=== PATIENT | male | born 1960 | race Caucasian/White ===

== ENCOUNTER → 2018-04-17 | Outpatient (CLI) | payer MEDICARE ==
--- NOTE | 2018-04-17 10:56 | Diagnostic Imaging Report ---
INDICATION: Chronic hepatitis C TECHNIQUE: Multiple grayscale sonographic images were obtained of the right upper quadrant of the abdomen. CORRELATION STUDY: None FINDINGS: LIVER: There is slight heterogeneous increased echotexture within the visualized portions of the liver. This does limited echo penetration of the liver. Liver is mildly enlarged at 20 cm. GALLBLADDER: Cholecystectomy. COMMON BILE DUCT: Not able to be visualized. No suggestion for significant bile duct dilatation.. PANCREAS: Obscured by overlying bowel gas. RIGHT KIDNEY: Measures 10.9 cm. No hydronephrosis. AORTA/IVC: Not well visualized. OTHER: None. IMPRESSION: 1. Slight heterogeneous echotexture liver parenchyma reflect some degree of infiltration. Liver is mildly enlarged. 2. Postcholecystectomy changes. Dictated by: Dictated on workstation # [id number]
== END ==
LOC: RAD 09:48
PROVIDERS: ATTEND Pediatrics
DX: B18.2 Chronic viral hepatitis C (principal); Z90.49 Acquired absence of other specified parts of digestive tract
CPT/HCPCS: 76705

== ENCOUNTER → 2019-04-15 | Outpatient (CLI) | payer MEDICARE, OTHER ==
--- NOTE | 2019-04-15 17:02 | Diagnostic Imaging Report ---
INDICATION: [id number] history of smoking. COMPARISON: None. TECHNIQUE: Routine low-dose noncontrast CT of the chest was performed per screening protocol. Auto Exposure Controls were utilized during the CT exam to meet ALARA standards for radiation dose reduction. FINDINGS: Evaluation of the lung jeffers demonstrates 6 mm juxtapleural micronodule within the inferolateral margins of the right upper lobe (image 96, series 2). No other suspicious pulmonary nodules or masses are identified. There is no focal consolidation, large effusion, nor pneumothorax. Cardiomediastinal structures show normal heart size. There is aneurysmal dilatation of the ascending thoracic aorta as it measures 4.4 cm in diameter. Few scattered subcentimeter mediastinal lymph nodes are noted. Otherwise, no pathologically enlarged or morphologically abnormal adenopathy is seen within the mediastinum, pradeep, nor axilla on this noncontrast exam. There is no large pericardial effusion. There is mild calcified aortic and coronary atherosclerosis. Osseous structures show no acute abnormalities. No lytic or blastic bony lesions are seen. IMPRESSION: 1. Single 6 mm micronodule within the inferolateral margins of the right upper lobe. Six-month followup with repeat CT chest is recommended. 2. Mild scattered calcified aortic and coronary atherosclerosis. 3. Aneurysmal dilatation of the ascending thoracic aorta. LungRads Category: 3-S. MODIFIERS: As above. Dictated by: Dictated on workstation # [id number]
== END ==
LOC: RAD 13:01
PROVIDERS: ATTEND Nurse Practitioner Primary Care
DX: Z12.2 Encounter for screening for malignant neoplasm of respiratory organs (principal); R91.1 Solitary pulmonary nodule; I25.10 Atherosclerotic heart disease of native coronary artery without angina pectoris; I70.0 Atherosclerosis of aorta; I71.2 Thoracic aortic aneurysm, without rupture; F17.210 Nicotine dependence, cigarettes, uncomplicated

== ENCOUNTER → 2019-10-15 | Outpatient (CLI) | payer MEDICARE ==
--- NOTE | 2019-10-15 16:48 | Diagnostic Imaging Report ---
PROCEDURE: CT chest without contrast. TECHNIQUE: Multiple contiguous axial images were obtained through the chest without the use of intravenous contrast. Auto Exposure Controls were utilized during the CT exam to meet ALARA standards for radiation dose reduction. INDICATION: Six-month follow-up for right upper lobe nodule. Thoracic aortic aneurysm. COMPARISON: 04/15/2019. FINDINGS: The heart size is within normal limits. No pericardial effusion is present. There is redemonstration of aneurysmal dilation of the ascending thoracic aorta measuring approximately 4.2 cm. No periaortic inflammatory changes or mediastinal hematoma are seen to suggest impending rupture. There is calcified aortic and coronary atherosclerotic plaque. There is no mediastinal, hilar, or axillary lymphadenopathy. Stable 0.6 cm nodule in the inferolateral aspect of the right upper lobe (image 58, series 4). No new pulmonary nodules are seen. There are no focal areas of consolidation. No central endobronchial obstructing lesions are identified. There is no pleural effusion or pneumothorax. The osseous structures demonstrate no acute abnormalities. Limited views of the upper abdominal structures demonstrate no acute abnormalities. Both adrenal glands are unremarkable. IMPRESSION: 1. Stable 0.6 cm nodule in the right upper lobe. No new suspicious pulmonary nodules are seen. Recommend continued follow-up in six months to document stability. 2. Overall stable appearance of the aneurysmal dilation of the ascending thoracic aorta. No secondary findings to suggest impending rupture. Dictated by: Dictated on workstation # [id number]
== END ==
LOC: RAD 15:35
PROVIDERS: ATTEND Nurse Practitioner Primary Care
DX: I71.4 Abdominal aortic aneurysm, without rupture (principal); R91.1 Solitary pulmonary nodule
CPT/HCPCS: 71250

== ENCOUNTER → 2020-05-31 | Outpatient (CLI) | payer MEDICARE ==
--- NOTE | 2020-05-31 10:03 | Diagnostic Imaging Report ---
EXAMINATION: CT Chest without contrast. TECHNIQUE: Multiple contiguous axial images were obtained through the chest without the use of intravenous contrast. All CT scans use one or more of the following dose optimizing techniques: automated exposure control, MA and/or KvP adjustment based on a patient size and exam type, or iterative reconstruction. HISTORY: Pulmonary nodule, aortic aneurysm. 40 pack year history of smoking. COMPARISON: 10/15/2019 and 04/15/2019 FINDINGS: There is no edema or pneumonia. No pleural effusion. No pneumothorax. There is a stable 6 mm right upper lobe pulmonary nodule. Mild scarring is seen in the anterior left lung. Heart size is normal. There are mild coronary artery calcifications. No pericardial effusion. There is a stable 4.5 cm ascending aortic aneurysm. There is no axillary or supraclavicular lymphadenopathy. There is no mediastinal lymphadenopathy. Limited views of the upper abdomen show stones in the left kidney which are nonobstructing. There are no suspicious osseus lesions. IMPRESSION: 1. Stable right upper lobe pulmonary nodule, stability is reassuring for malignancy. This was originally found in the lung cancer screening study and cannot be considered lung RADS two and patient can return to annual screening. 2. Stable 4.5 cm ascending aortic aneurysm. Dictated by: Dictated on workstation # [id number]
--- NOTE | 2020-05-31 11:03 | Diagnostic Imaging Report ---
HISTORY: Abdominal aortic aneurysm. COMPARISON: None TECHNIQUE: Grayscale and color Doppler ultrasound of the aorta. FINDINGS: The proximal aorta measures 1.6 x 1.8 cm. The mid aorta measures 1.4 x 1.3 cm. The distal aorta measures 1.3 x 1.6 cm. The right iliac measures 0.7 x 0.7 cm. The left iliac measures 0.7 x 0.8 cm. Flow in the aorta appears normal. There is no aneurysm. IMPRESSION: 1. No evidence of abdominal aortic aneurysm. Dictated by: Dictated on workstation # [id number]
== END ==
LOC: RAD 09:08
PROVIDERS: ATTEND Nurse Practitioner Family
DX: I71.4 Abdominal aortic aneurysm, without rupture (principal); R91.1 Solitary pulmonary nodule
CPT/HCPCS: 71250; 76775

== ENCOUNTER → 2021-06-01 | Outpatient (CLI) | payer MEDICARE ==
--- NOTE | 2021-06-01 13:58 | Diagnostic Imaging Report ---
CT Lung Screening INDICATION: Current smoker with [id number] history, for low-dose CT screening. TECHNIQUE: Noncontrast, low-dose CT imaging performed according to the lung cancer screening protocol. Auto Exposure Controls were utilized during the CT exam to meet ALARA standards for radiation dose reduction. COMPARISON: 05/31/2020. FINDINGS: Juxtapleural nodule laterally in the right upper lobe today measures 7 mm, not significantly changed from the previous exam. No new dominant or suspicious lung mass. No spiculated lesion. No findings of lung cancer. There is no axillary, hilar, or mediastinal lymphadenopathy. Unruptured dilatation of the ascending thoracic aorta at 4.5 cm is stable. No acute chest wall pathology. The visualized upper abdomen is unremarkable. IMPRESSION: Stable juxtapleural nodule in the right upper lobe as a chronic benign finding no evidence of lung cancer. LUNG-RADS CATEGORY: Category 2 OTHER SIGNIFICANT FINDINGS: Unruptured 4.5 cm dilatation of the ascending aorta, stable. Dictated by: Dictated on workstation # [id number]
== END ==
LOC: RAD 13:11
PROVIDERS: ATTEND Physician Assistant
DX: Z12.2 Encounter for screening for malignant neoplasm of respiratory organs (principal); R91.1 Solitary pulmonary nodule; F17.210 Nicotine dependence, cigarettes, uncomplicated
CPT/HCPCS: 71271

== ENCOUNTER → 2023-04-09 | Outpatient (CLI) | payer OTHER ==
[~2023-04-09] MED LIST: CATHETER FLUSH 10 ML SYR IVP PRN; REGADENOSON 0.4 MG/5 ML SYR (LEXISCAN) IV ONE
[2023-04-09 09:43] VITALS: BP 145/83
--- NOTE | 2023-04-09 20:11 | STRESS TEST ---
DATE OF SERVICE: 04/09/2023 RESTING AND POST REGADENOSON TECHNETIUM-99M TETROFOSMIN SPECT CT IMAGING ORDERING PHYSICIAN: Dr. Benitez. PRIMARY PHYSICIAN: Zayra Donnelly APRN. OTHER PHYSICIAN: Dr. Shanti Holt. CLINICAL DIAGNOSIS: Chest discomfort, shortness of breath. Baseline images were carried out after injection of 10.94 mCi of technetium-99m tetrofosmin. This was followed by 0.4 mg regadenoson and 31.2 mCi of technetium-99m tetrofosmin for stress imaging. The electrocardiogram showed sinus rhythm at baseline. It did not change significantly with regadenoson infusion. The patient tolerated the procedure well. Review of images at rest and following stress indicates a small transient basal inferior perfusion defect. SDS is 3. Gated images show normal regional wall motion. Global left ventricular systolic function is well preserved. Left ventricular ejection fraction is calculated to be 62%. CONCLUSIONS: 1. This study is indicative of a small amount of basal inferior ischemia (SDS 3). 2. Based on this result, this is considered a relatively low risk study. 3. Normal regional wall motion. 4. Normal global left ventricular systolic function with a calculated ejection fraction of 62%. Job ID: [id number] DocumentID: [id number] Dictated Date: 04/09/2023 19:59:46 Interventional Radiology Rn Date: 04/09/2023 20:10:00 Dictated By: NIVIA BENITEZ MD; TERRELL; FACP; FACC;
== END ==
LOC: CARD 08:01
PROVIDERS: ATTEND Internal Medicine Cardiovascular Disease
DX: R07.9 Chest pain, unspecified (principal); R06.02 Shortness of breath
CPT/HCPCS: 78452; 93017; A9502

== ENCOUNTER → 2023-04-10 | Outpatient (CLI) | payer OTHER | LOC: CARD 07:54 | PROVIDERS: ATTEND Internal Medicine Cardiovascular Disease | DX: C34.90 Malignant neoplasm of unspecified part of unspecified bronchus or lung (principal) | CPT/HCPCS: 93306 ==